=== PATIENT | female | born 2000 | race Caucasian/White ===

== ENCOUNTER 2023-12-16 10:37 | Outpatient (CLI) | payer OTHER, SELFPAY ==
[2023-12-16 11:46] LABS: CRP < 0.5 mg/dL (<1.0)
[2023-12-16 11:51] LABS: Erythrocyte Sedimentation Rate 2 mm/hr (0-20)
[2023-12-21 07:32] LABS: Immunoglobulin A 120 mg/dL (47-310); TTG IGA AB <1.0 U/mL (<15.0)
== END 2023-12-16 10:38 | disposition home or self-care (01) ==
LOC: ANHLAB 10:39
PROVIDERS: PCP Nurse Practitioner Family; Visit Provider Nurse Practitioner
DX: R19.4 Change in bowel habit (principal); R19.7 Diarrhea, unspecified
CPT/HCPCS: 36415; 82784; 85652; 86003; 86140; 86364

== ENCOUNTER 2023-12-30 09:01 | Outpatient (CLI) | payer OTHER, SELFPAY ==
[2024-01-04 04:35] LABS: H pylori Ag Stool Not Detected (Not Detected)
[2024-01-12 22:27] LABS: Calprotectin, Stool 6 mcg/g; Pancreatic Elastase, Stool >500 mcg/g
== END 2023-12-30 09:02 | disposition home or self-care (01) ==
PROVIDERS: PCP Nurse Practitioner Family; Visit Provider Nurse Practitioner
DX: A04.8 Other specified bacterial intestinal infections (principal); R19.4 Change in bowel habit; R10.9 Unspecified abdominal pain; R17 Unspecified jaundice
CPT/HCPCS: 82653; 83993; 87045; 87177; 87209; 87269; 87338; 87427; 87449; 87493

== ENCOUNTER 2025-04-18 13:39 | Emergency (ER) | payer OTHER, SELFPAY ==
--- OUTSIDE RECORDS SUMMARY | 2025-04-18 13:46 | XMS_ITS | Clinical Summary ---
Author Organization [facility] Care Team Providers Care Splitting Machine Operator Helper Name Role Phone Unavailable Primary Care Provider Unavailabl e Immunizations Immunization Administration Dates Next Due Covid-19, Mrna, Lnp-s, Pf, 30 Mcg/0.3 Ml Dose (P fizer) 10/13/2021 Social History Tobacco Use Types Packs/Day Years Used Date Smoking Tobacco: Never Assessed Comments Unknown Sex and Gender Information Value Date Recorded Sex Assigned at Not on file Legal Sex Female 1:57 PM CONTENT ADMINISTRATOR Gender Identity Not on file Sexual Orientation Not on file Plan of Treatment Health Maintenance Due Date Last Done Comments Hepatitis C Virus (HCV) Screening 2000 Influenza Immunization (#1) 2024 10/01/2017, 1 SARS-COV-2 Immunization ( season) 2024 10/13/2021 Respiratory Syncytial Virus (RSV) Immunization (Adult) (1 - 1-dose 75+ series) 2075 Pneumococcal Immunization Combined Aged Out 2000, 2000, 2000 No longer eligible based on patient's age to complete this topic Hepatitis B Immunization Completed 001, 2000, 2000 DTaP/Tdap/Td Immunization Discontinued 2010, 06/01/2005, 08/26/2001, Additional history exists TdaP Immunization Completed 05/28/2011 Human Papillomavirus (HPV) Immunization Completed 04/18/2013, 09/16/2012, 06/17/2012 Meningococcal Immunization (ACWY) Completed 05/28/2016, 05/28/2011 Meningococcal B Immunization Discontinued 10/10/2018, 06/14/2018 Rotavirus Immunization Aged Out No lo nger eligible based on patient's age to complete this topic
--- OUTSIDE RECORDS SUMMARY | 2025-04-18 13:46 | XMS_ITS | Continuity of Care Document ---
Author Organization [facility] Address [address] [place] [address] Phone Care Team Providers Care Gear Milling Machine Set Up Operator Name Role Phone Langston OD, Agustin Unavailable Unavailable Procedures Procedure Date Eye Exam & Treatment Refraction Eye Exam & Treatment Refraction Eye Exam & Treatment Refraction Eye Exam, New Patient Refraction Advance Directives Directive Yes / No Effective Date File Name No Information Encounters Encounter Description Practice Location Reason(s) For Visit Diagnoses Date Provider Providers Copied on Encounter [facility], [address] [place] [address] [address], [place], [place], [address], tel:[phone] SEC [facility] No Information 5-201 0 Langston OD Agustin. [address], [place], [place], [facility], [place]. tel:[phone] [facility], [address] [place] [address] [address], [place], [place], [address], [place] tel:[phone] [facility] No Information 9-200 9 Langston OD Agustin. [address], [place], [address], . tel:[phone] [facility], [address] [place] [address] [address], [place], [place], [address], [place] tel:[phone] [facility] No Information 9200 8 Langston OD Agustin. [address] , [address], [place], [address], . tel:[phone] [facility], [address], [place], [place], [address], [place] tel:[phone] [facility] No Information 6200 7 Langston OD Agustin. [address] [facility] , [address], [place], [address], [place]. tel:[phone] Family History Family Member Type Diagnosis Age At Onset No Information Payers Payer name Insurance type Covered alliance party ID libby tena(s) [employer] Plan CI [id number] Social History Type Description Quantity Date Captured Comments Sex Female Smoking Status No Information Chief Complaint And Reason For Visit No Information Reason For Referral Reason For Referral No Information History Of Present Illness Encounter Date Complaint History Of Prese nt Illness No Information Functional Status Date Functional Assessmen t No Information Instructions Date Instruction Additional Infor mation No Information Assessments Type Assessment Date No Information Patient Care Teams Name Effective Dates (start - stop) Status Members No Information
--- OUTSIDE RECORDS SUMMARY | 2025-04-18 13:46 | XMS_ITS | Continuity of Care Document ---
Author Organization [facility] Address [address] [place] [address] Phone Care Team Providers Care Signal Intelligence Analyst Name Role Phone Langston OD, Agustin Unavailable Unavailable Procedures Procedure Date Eye Exam & Treatment Refraction Eye Exam & Treatment Refraction Eye Exam & Treatment Refraction Eye Exam, New Patient Refraction Advance Directives Directive Yes / No Effective Date File Name No Information Encounters Encounter Description Practice Location Reason(s) For Visit Diagnoses Date Provider Providers Copied on Encounter [facility], [address] [place] [address] [address], [place], [place], [address], tel:[phone] SEC [facility] No Information 5-201 0 Langston OD Agustin. [address], [place], [place], [facility], [place]. tel:[phone] [facility], [address] [place] [address] [address], [place], [place], [address], [place] tel:[phone] [facility] No Information 9-200 9 Langston OD Agustin. [address], [place], [address], . tel:[phone] [facility], [address] [place] [address] [address], [place], [place], [address], [place] tel:[phone] [facility] No Information 9200 8 Langston OD Agustin. [address], [place], [address], . tel:[phone] [facility], [address], [place], [place], [address], [place] tel:[phone] [facility] No Information 6200 7 Langston OD Agustin. [address] [facility] , [address], [place], [address], [place]. tel:[phone] Family History Family Member Type Diagnosis Age At Onset No Information Payers Payer name Insurance type Covered republican ID libby tena(s) [employer] Plan CI [id number] Social History Type Description Quantity Date Captured [...]
--- OUTSIDE RECORDS SUMMARY | 2025-04-18 13:46 | XMS_ITS | Clinical Summary ---
Author Organization [facility] [employer] Address [address] [facility] [place] [address] Care Team Providers Care Milling Supervisor Name Role Phone Savi Cherry MD Primary Care Provider [phone] Source Comments [facility] [employer],non-owned Affiliates and Associated Physician Practices is amultiple site organization consisting of ambulatory clinics and hospital sitesin [place], [place], [place] and [place]. This disclosure is being madepursuant to the Care Everywhere program and may not contain all information available regarding this patient. Last updated 18.[employer] [facility] [employer] Allergies No known active allergies Medications * Be aware that medications may not be up to date on this document. Alwaysverify current medications with the patient. spironolactone (ALDACTONE) 50 MG tablet Take 50 mg by mouth once daily Active amoxicillin-cla vulanate (AUGMENTIN) 500-125 MG tablet Take by mouth 2 times daily with morning and evening meal Active Family History Medical History Relation Name Comments Cancer - Other Mother Asthma Neg Hx Autoimmune Disease Neg Hx Bipolar Disorder Neg Hx Cancer - Breast Neg Hx Cancer - Colon Neg Hx Cancer - Ovarian Neg Hx Cancer - Pancreatic Neg Hx Cancer - Prostate Neg Hx Depression Neg Hx Eczema Neg Hx Hypertension Neg Hx Migraine Neg Hx Osteoporosis Neg Hx Seizures Neg Hx Sudd. <30 Neg Hx Thyroid Disease Neg Hx Ulcerative Colitis Neg Hx Relation Name Status Comments Father Alive Mother Alive Social History Tobacco Use Types Packs/Day Years Used Date Smoking Tobacco: Never Smokeless Tobacco: Never Tobacco Cessation:Counseling Given: No Alcohol Use Standard Drinks/Week Comments No 0 (1 standard drink = 0.6 oz pur e alcohol) Comments No Sex and Gender Information Value Date Recorded Sex Assigned at Not on file Legal Sex Female 5:39 AM ATOMIC SPECTROSCOPIST Gender Identity Not on file Sexual Orientation Not on file Last Filed Vital Signs Vital Sign Reading Time Taken Comments Blood Pressure 112/60 12/20/2017 4:59 PM ATOMIC SPECTROSCOPIST Pulse 88 12/20/2017 4:59 PM ATOMIC SPECTROSCOPIST Temperature 36.8 C (98.3 F) 12/20/2017 4:59 PM ATOMIC SPECTROSCOPIST Respiratory Rate 16 12/20/2017 4:59 PM ATOMIC SPECTROSCOPIST Oxygen Saturation 98% 12/20/2017 4:59 PM ATOMIC SPECTROSCOPIST Inhaled Oxygen Concentration - - Weight 61.2 kg (135 lb) 12/20/2017 4:59 PM ATOMIC SPECTROSCOPIST Height 167.6 cm (5' 6) 12/20/2017 4:59 PM ATOMIC SPECTROSCOPIST Body Mass Index 21.79 12/20/2017 4:59 PM ATOMIC SPECTROSCOPIST Plan of Treatment Health Maintenance Due Date Last Done Comments HIV SCREENING 2015 HPV VACCINE (1 - 3-dose series) 2015 CHLAMYDIA/GONORRHEA SCREENING 2016 HEPATITIS C SCREENING 05/21/2018 DTAP/TDAP/TD VACCINES (1 - Tdap) 2019 HEPATITIS B VACCINE (1 of 3 - 19+ 3-dose series) 2019 COVID-19 VACCINE (1 - 2023-2 5 season) 2024 DEPRESSION SCREENING 11/22/2024 INFLUENZA VACCINE (Season Ended) 2025 ZOSTER VACCINE (1 of 2) 2050 HIB VACCINE Aged Out No longer eligi ble based on patient's age to complete this topic MENINGOCOCCAL (Group B) VACC INE SHARED DECISION-MAKING Aged Out No longer eligibl e based on patient's age to complete this topic MENINGOCOCCAL GROUPS A/C/Y/W VACCINE Aged Out No longer eligible b ased on patient's age to complete this topic PNEUMOCOCCAL VACCINE Aged Out No long er eligible based on patient's age to complete this topic Insurance [employer] Care Teams Milling Supervisor Relationship Specialty Start Date End Date Savi Cherry MD [address] [facility] [address] [place], [place] [id number] PCP - General Pediatrics 12/20/17
--- NOTE | 2025-04-18 13:48 | ED.URI ---
HPI - URI/Sore Throat General Chief Complaint: Upper Respiratory Infection Stated Complaint: sore throat Time Seen by Provider: 04/18/25 13:48 History of Present Illness HPI Narrative: 24-year-old female presented for complaint of sore throat. Onset yesterday. Says the right ear also had mild pain yesterday but has resolved. Took Tylenol. Denies any associated symptoms. Related Data Home Medications ?Medication ?Instructions ?Recorded ?Confirmed ?Last Taken ?Type ascorbic acid (vitamin C) PO 10/25/23 01/21/24 Unknown History drospirenone-ethinyl estradiol PO DAILY 10/25/23 01/21/24 Unknown History Allergies Allergy/AdvReac Type Severity Reaction Status Date / Time No Known Allergies Allergy Verified 04/18/25 13:48 Review of Systems Review of Systems: CONSTITUTIONAL: Denies body aches, fever, chills, or sweats. EYES: Denies visual changes, redness, or discharge. ENT: reports sore throat Denies rhinorrhea, congestion, or otalgia. CARDIOVASCULAR: Denies chest pain, palpitations, or edema. RESPIRATORY: Denies dyspnea. GASTROINTESTINAL: Denies abdominal pain, nausea, vomiting, or diarrhea. SKIN: Denies rash NEUROLOGIC: Denies headache PMFSH Past Medical History Medical History Abdominal cramping Change in bowel habits Diarrhea Encounter to establish care Irritable bowel syndrome with diarrhea Lactose intolerance Family History Family History Mother Non-Hodgkin lymphoma Social History Social History Smoking status: Never smoker Alcohol intake: current Alcohol use details: 1-2 drinks per month Substance use: never Lack of Transportation: No Lack of Food: Never True Current Housing: I Have Housing Concerned About Future Housing: No Difficulty Paying Gas/Electric Bills: No Difficulty Paying for Meds: No Currently Unemployed: No Education: Bachelor's Degree Difficulty w/ Childcare or Family Care: No Exam Narrative: GENERAL: well-appearing EYES: conjunctivae clear ENT: Mucous membranes moist. TMs pearly bender with normal light reflex bilaterally; no tragal tenderness. Oropharynx erythematous without lesions. Tonsils enlarged 2+ and without exudate. No drooling, no hoarseness, no trismus, uvula midline. No tripod positioning, hot potato voice, or soft palate swelling. NECK: Supple. No lymphadenopathy CHEST: Clear to auscultation, breath sounds equal. No respiratory distress, speaks in full sentences. HEART: Regular rate and rhythm. No murmur heard. SKIN: Warm, dry, no rash. NEURO: Alert and oriented x3. Course Course Emergency Course: Patient is aware of diagnosis, understands and agrees to treatment plan. Anticipatory guidance given. Patient agrees to follow-up as directed and is aware of reasons to seek care at the emergency department. Portions of this record may have been created with voice recognition software Level of Care: Express Care Visit MDM - URI/Sore Throat MDM Narrative Medical decision making narrative: neg strep result reviewed with pt. Advise supportive treatments. Patient is appropriate for outpatient treatment and follow-up. Differential Diagnosis Differential diagnosis: Likely upper respiratory infection, viral infection and pharyngitis Discharge Plan Discharge Clinical Impression: Pharyngitis Patient Disposition: Home Condition: Stable Instructions: Antibiotic Form, Strep Throat (ED) Additional Instructions: Rapid strep swab was negative today You will be notified in a few days if the culture comes back positive for strep, and appropriate antibiotics will be called in at that time. if symptoms are due to a viral illness, it is not treated with antibiotics. Viral symptoms can be present for up to 10-14 days. Recommendations: Flonase spray and Zyrtec for sinus drainage/ congestion Tylenol every 8 hours as needed for pain/fever Soft foods, cool liquids, warm tea. Gargle with warm saltwater twice a day. Chloraseptic spray and throat lozenges. Rest and stay hydrated. --Follow up with your PCP --Go to the ER immediately if you cannot swallow your saliva, trouble breathing/wheezing, throat swelling, pain is persistent and severe Patient Language: Hungarian Prescriptions: No Action drospirenone-ethinyl estradiol PO DAILY ascorbic acid (vitamin C) PO Follow-up/Referrals: Pete Gama MD [Primary Care Provider] - Time of Disposition: 14:03
[2025-04-18 13:50] VITALS: BP 119/73; PULSE 83; RESP 18; TEMP 36.7; O2SAT 100
[2025-04-18 13:59] LABS: EDSTREPNEGPOS1 Negative (Negative)
== END 2025-04-18 14:02 | disposition home or self-care (01) ==
PROVIDERS: Emergency Provider Nurse Practitioner Family; PCP Family Medicine
DX: J02.9 Acute pharyngitis, unspecified (principal)
CPT/HCPCS: 87081; 87880; 99213; G0463

== ENCOUNTER 2025-04-23 12:57 | Emergency (ER) | payer OTHER, SELFPAY ==
[2025-04-23 13:02] VITALS: BP 135/73; PULSE 111; RESP 16; TEMP 36.3; O2SAT 100
--- OUTSIDE RECORDS SUMMARY | 2025-04-23 13:05 | XMS_ITS | Clinical Summary ---
Author Organization [facility] [employer] Address [address] [facility] [place] [address] Care Team Providers Care Cancer Genetics Assistant Name Role Phone Savi Cherry MD Primary Care Provider [phone] Source Comments [facility] [employer],non-owned Affiliates and Associated Physician Practices is amultiple site organization consisting of ambulatory clinics and hospital sitesin [place], [place], [place] and [place]. This disclosure is being madepursuant to the Care Everywhere program and may not contain all information available regarding this patient. Last updated [email or web address] Allergies No known active allergies Medications * [...] on file Legal Sex Female 5:39 AM IMPREGNATION OPERATOR Gender Identity Not on file Sexual Orientation Not on file Last Filed Vital Signs Vital Sign Reading Time Taken Comments Blood Pressure 112/60 12/20/2017 4:59 PM IMPREGNATION OPERATOR Pulse 88 12/20/2017 4:59 PM IMPREGNATION OPERATOR Temperature 36.8 C (98.3 F) 12/20/2017 4:59 PM IMPREGNATION OPERATOR Respiratory Rate 16 12/20/2017 4:59 PM IMPREGNATION OPERATOR Oxygen Saturation 98% 12/20/2017 4:59 PM IMPREGNATION OPERATOR Inhaled Oxygen Concentration - - Weight 61.2 kg (135 lb) 12/20/2017 4:59 PM IMPREGNATION OPERATOR Height 167.6 cm (5' 6) 12/20/2017 4:59 PM IMPREGNATION OPERATOR Body Mass Index 21.79 12/20/2017 4:59 PM IMPREGNATION OPERATOR Plan of Treatment Health Maintenance Due Date [...] complete this topic Insurance [employer] Care Teams Cancer Genetics Assistant Relationship Specialty Start Date End Date Savi Cherry MD [address] [facility] [address] [place], [place] [id number] PCP - General Pediatrics 12/20/17
--- OUTSIDE RECORDS SUMMARY | 2025-04-23 13:05 | XMS_ITS | Clinical Summary ---
Author Organization [facility] Care Team Providers Care Supervising Nurse Name Role Phone Unavailable Primary Care Provider Unavailabl e Immunizations Immunization Administration Dates Next Due Covid-19, Mrna, Lnp-s, Pf, 30 Mcg/0.3 Ml Dose (P fizer) 10/13/2021 Social History Tobacco Use Types Packs/Day Years Used Date Smoking Tobacco: Never Assessed Comments Unknown Sex and Gender Information Value Date Recorded Sex Assigned at Not on file Legal Sex Female 1:57 PM NUTRITIONALIST Gender Identity Not on file Sexual Orientation [...]
--- OUTSIDE RECORDS SUMMARY | 2025-04-23 13:05 | XMS_ITS | Continuity of Care Document ---
Author Organization [facility] Address [address] [place] [address] Phone Care Team Providers Care Scientific Informatics Project Leader Name Role Phone Langston OD, Agustin Unavailable Unavailable Procedures Procedure Date Eye Exam & Treatment Refraction Eye Exam & Treatment Refraction Eye Exam & Treatment Refraction Eye Exam, New Patient Refraction Advance Directives Directive Yes / No Effective Date File Name No Information Encounters Encounter Description Practice Location Reason(s) For Visit Diagnoses Date Provider Providers Copied on Encounter [facility], [address] [place] [address] [address], [place], [place], [address], tel:[phone] SEC [facility] No Information 5-201 0 Langston OD Agustin. [address], [place], [place], [facility], [place]. tel:[phone] [facility], [address] [place] [address] [address], [place], [place], [address], [place] tel:[phone] [facility] No Information 9-200 9 Langston OD Agustin. [address], [place], [address], . tel:[phone] [facility], [address] [place] [address] [address], [place], [place], [address], [place] tel:[phone] [facility] No Information 9200 8 Langston OD Agustin. [address], [place], [address], . tel:[phone] [facility], [address], [place], [place], [address], [place] tel:[phone] [facility] No Information 6200 7 Langston OD Agustin. [address] [facility] , [address], [place], [address], [place]. tel:[phone] Family History Family Member Type Diagnosis Age At Onset No Information Payers Payer name Insurance type Covered libertarian ID libby tena(s) [employer] Plan CI [id number] Social History Type Description Quantity Date Captured [...]
--- OUTSIDE RECORDS SUMMARY | 2025-04-23 13:07 | XMS_ITS | Continuity of Care Document ---
Author Organization [facility] Address [address] [place] [address] Phone Care Team Providers Care Motor Carrier Inspector Name Role Phone Langston OD, Agustin Unavailable Unavailable Procedures Procedure Date Eye Exam & Treatment Refraction Eye Exam & Treatment Refraction Eye Exam & Treatment Refraction Eye Exam, New Patient Refraction Advance Directives Directive Yes / No Effective Date File Name No Information Encounters Encounter Description Practice Location Reason(s) For Visit Diagnoses Date Provider Providers Copied on Encounter [facility], [address] [place] [address] [address], [place], [place], [address], tel:[phone] SEC [facility] No Information 5-201 0 Langston OD Agustin. [address], [place], [place], [facility], [place]. tel:[phone] [facility], [address] [place] [address] [address], [place], [place], [address], [place] tel:[phone] [facility] No Information 9-200 9 Langston OD Agustin. [address], [place], [address], . tel:[phone] [facility], [address] [place] [address] [address], [place], [place], [address], [place] tel:[phone] [facility] No Information 9200 8 Langston OD Agustin. [address], [place], [address], . tel:[phone] [facility], [address], [place], [place], [address], [place] tel:[phone] [facility] No Information 6200 7 Langston OD Agustin. [address] [facility] , [address], [place], [address], [place]. tel:[phone] Family History Family Member Type Diagnosis Age At Onset No Information Payers Payer name Insurance type Covered green party ID libby tena(s) [employer] Plan CI [id number] Social History Type Description Quantity Date Captured [...]
--- NOTE | 2025-04-23 13:14 | ED.GENADULT ---
HPI - General Adult General Chief complaint: Wound/Laceration Stated complaint: Insect Bite On LT Leg History of Present Illness HPI narrative: Maria M Davis is a 24 y/o female who presents with reports of getting a bug bite 2 days ago to her left lower calf area. She states that it was itching, she did not see the bug but since the area has become more swollen and inflamed. She also has a scratch over the area from scratching it. She denies any fever/chills/ no severe pain. Reports slight itching. Related Data Home Medications ?Medication ?Instructions ?Recorded ?Confirmed ?Last Taken ?Type ascorbic acid (vitamin C) PO 10/25/23 01/21/24 Unknown History drospirenone 3 mg-ethinyl tablet 04/23/25 Unknown History estradiol 0.02 mg tablet Allergies Allergy/AdvReac Type Severity Reaction Status Date / Time No Known Allergies Allergy Verified 04/23/25 13:03 Review of Systems Review of Systems: All systems reviewed & are unremarkable except as noted in HPI and below PMFSH Past Medical History Medical History Lactose intolerance Change in bowel habits Abdominal cramping Irritable bowel syndrome with diarrhea Diarrhea Encounter to establish care Family History Family History Mother Non-Hodgkin lymphoma Social History Social History Smoking status: Never smoker Alcohol intake: current Alcohol use details: 1-2 drinks per month Substance use: never Lack of Transportation: No Lack of Food: Never True Current Housing: I Have Housing Concerned About Future Housing: No Difficulty Paying Gas/Electric Bills: No Difficulty Paying for Meds: No Currently Unemployed: No Education: Bachelor's Degree Difficulty w/ Childcare or Family Care: No Exam Narrative: GENERAL: Well-appearing, well-nourished, and in no acute distress. HEAD: Normocephalic, atraumatic. EYES: PERRLA and EOMI. ENT: Nares clear, no rhinorrhea or epistaxis. Mucous membranes moist. Oropharynx without tonsillar hypertrophy exudate or other lesions. Bilateral TMs pearly bender nonbulging NECK: Supple. No adenopathy or masses. No carotid bruits or JVD CHEST: Clear to auscultation. No respiratory distress. No wheezes rales or rhonchi HEART: Regular rate and rhythm. No murmur heard. Normal peripheral pulses. ABDOMEN: Soft, nontender, nondistended, normal active bowel sounds. EXTREMITIES: Normal range of motion. No edema. SKIN: area to left lower calf area noted to have about an 8cm by 8cm area of pink/ erythema slightly warm and a scratch to the top of the area she explains the original bug bite was more in the center of the erythema NEURO: No focal deficits. Alert and oriented x3. PSYCH: Normal mood and affect. Course Course Level of Care: Express Care Visit Vital Signs Vital signs: Vital Signs Temperature 36.3 C L 04/23/25 13:02 Pulse Rate 111 H 04/23/25 13:02 Respiratory Rate 16 04/23/25 13:02 Blood Pressure 135/73 04/23/25 13:02 Pulse Oximetry 100 04/23/25 13:02 Oxygen Delivery Room Air 04/23/25 13:02 Temperature 36.3 C L 04/23/25 13:02 Pulse Rate 111 H 04/23/25 13:02 Respiratory Rate 16 04/23/25 13:02 Blood Pressure 135/73 04/23/25 13:02 Pulse Oximetry 100 04/23/25 13:02 Oxygen Delivery Room Air 04/23/25 13:02 Medical Decision Making MDM Narrative Medical decision making narrative: Patient is very well appearing / no fever/chills Concern for Delayed histamine reaction related to an insect bite vs early localized infection from scratching the insect bite Will start pt on Zyrtec daily and Cephalexin BID No evidence of necrotic center or [place] or hx of a tick being on her Close PCP follow up Strict return precautions provided She is agreeable to this plan and denies any further questions. Medical Records Medical records reviewed: Yes I reviewed the external patient's medical records. Vital Signs Vital Signs: Vital Signs Temperature 36.3 C L 04/23/25 13:02 Pulse Rate 111 H 04/23/25 13:02 Respiratory Rate 16 04/23/25 13:02 Blood Pressure 135/73 04/23/25 13:02 Pulse Oximetry 100 04/23/25 13:02 Oxygen Delivery Room Air 04/23/25 13:02 Temperature 36.3 C L 04/23/25 13:02 Pulse Rate 111 H 04/23/25 13:02 Respiratory Rate 16 04/23/25 13:02 Blood Pressure 135/73 04/23/25 13:02 Pulse Oximetry 100 04/23/25 13:02 Oxygen Delivery Room Air 04/23/25 13:02 Vitals reviewed by me Discharge Plan Discharge Clinical Impression: Contact dermatitis, Bug bite Patient Disposition: Home Condition: Stable Instructions: Antibiotic Form, Insect Bite or Sting (ED) Additional Instructions: Start taking the Zyrtec once daily to help with the inflammation and itching Start taking the Cephalexin twice daily for 1 week Keep area cleansed This should only improve, If you develop any worsening symptoms or concerns then proceed to the ER Patient Language: [place] Prescriptions: New Zyrtec 10 mg capsule 10 mg PO DAILY PRN (Reason: allergy symptoms) Qty: 30 0RF cephalexin 500 mg capsule 500 mg PO Q12H Qty: 14 0RF No Action drospirenone-ethinyl estradiol 3-0.02 mg tablet ascorbic acid (vitamin C) PO Follow-up/Referrals: Pete Gama MD [Primary Care Provider] - 1 Week Time of Disposition: 13:17
== END 2025-04-23 13:23 | disposition home or self-care (01) ==
PROVIDERS: Emergency Provider Nurse Practitioner Family; PCP Family Medicine
DX: L25.9 Unspecified contact dermatitis, unspecified cause (principal); S80.862A Insect bite (nonvenomous), left lower leg, initial encounter; W57.XXXA Bitten or stung by nonvenomous insect and other nonvenomous arthropods, initial encounter; E73.9 Lactose intolerance, unspecified
CPT/HCPCS: 99213; G0463